=== PATIENT | male | born 1950 | race Caucasian/White ===

== ENCOUNTER 2022-05-24 18:44 | Emergency (ER) | payer MEDICARE, SELFPAY ==
--- NOTE | ~2022-05-24 | XR_ITS ---
EXAMINATION: XR HAND, RIGHT CLINICAL INFORMATION: Laceration to index and middle finger COMPARISON: None TECHNIQUE: PA, lateral, and oblique views of the right hand. FINDINGS: Degenerative changes are present at the first and second CORRECTION joints as well as at the triscaphe joint. Some mild degenerative changes are present at the interphalangeal joints, most marked second PIP joint. No fractures are seen. A bandage overlying the distal index finger. No radiopaque foreign bodies are present XR/XR hand RT min 3V IMPRESSION: No evidence of an acute traumatic osseous injury. No radiopaque foreign bodies. Degenerative changes as described above.
[2022-05-24 18:52] VITALS: BP 133/74; PULSE 77; RESP 16; TEMP 36.4; O2SAT 96; BMI 27.4
--- NOTE | 2022-05-24 19:13 | ED_ITS ---
HPI - Wound/Laceration General Chief Complaint: Wound/Laceration Stated Complaint: Laceration right hand 2fingerd Source: patient Mode of arrival: ambulatory Limitations: no limitations History of Present Illness HPI narrative: 71-year-old male presents with lacerations to his right and middle index finger on the right hand after getting his hand stuck in a car engine fan blade. He was able to put pressure dressing, used an [id number] anticoagulant because he could not stop the bleeding. He is on blood thinners, he is able to move all of his digits with full range of motion although painful, and states that his last tetanus shot was over 10 years ago. He does not report any other injuries at this time. Onset (ago): hour(s) (Several hours prior to arrival) Extremity Location: right: hand (Middle and index finger) Place: home Patient tetanus UTD: No Context: accidental Associated symptoms: pain and suspect foreign body present Treatments prior to arrival: bandage Related Data Previous Rx's Medication Instructions Recorded amoxicillin 875 mg-potassium 1 tab PO Q12H 10 days #20 tabs 05/24/22 clavulanate 125 mg tablet ibuprofen 600 mg tablet 600 mg PO Q6H PRN pain #60 tabs 05/24/22 Allergies Allergy/AdvReac Type Severity Reaction Status Date / Time No Known Allergies Allergy Verified 05/24/22 18:52 Review of Systems Review of Systems: Constitutional: No Fever, No Chills ENT/Mouth: No Ear Pain, No Hoarseness, No sore throat Eyes: No Eye Pain, No Swelling, No Redness, No Foreign Body Cardiovascular: No Chest Pain, No SOB Respiratory: No Cough, No Dyspnea Gastrointestinal: No Nausea, No Vomiting, No Diarrhea, No abdominal Pain Genitourinary: No Dysuria, No Hematuria Musculoskeletal: positive right index and middle finger pain, No Myalgias, No Joint Swelling Skin: Multiple lacerations to the index and middle finger of the right hand, No rash Neuro: No Weakness, No Numbness, No Paresthesias, No Loss of Consciousness, No Dizziness, No Headache Psych: No Anxiety/Panic, No Depression Heme/Lymph: no easy bruising, no Lymphadenopathy Endocrine: No Polyuria, No Polydipsia Yes all other systems are reviewed and are negative FOR[facility], [facility] Past Medical History Attestation statement: The following information was validated with the patient. Source: old records reviewed Social History Social History Advance Directives: No Advance Directives Information Provided: Yes Physical Exam Vital Signs: Vital Signs: Last Vital Signs Temp 97.5 F 05/24/22 18:52 Pulse 77 05/24/22 18:52 Resp 16 05/24/22 18:52 BP 133/74 05/24/22 18:52 Pulse Ox 96 05/24/22 18:52 O2 Del Method 05/24/22 18:52 BMI result Body Mass Index 27.4 Appearance: Alert. Oriented X3. No acute distress. Eyes: Pupils equal, round and reactive to light. ENT: Pharynx normal. Neck: Normal inspection. Neck supple. CVS: Normal heart rate and rhythm. Pulses normal. Respiratory: No respiratory distress. Breath sounds normal. Abdomen: Soft and nontender. Skin: Irregular deep laceration to the right index finger measuring 7 cm, 2 lacerations to the middle finger involving the nail and radial aspect of the middle finger, Skin warm and dry. Normal skin color. Normal skin turgor. Extremities: No lower extremity edema. Full range of motion to all digits. Strength 5/5. No indication of tendon deficit. Brisk capillary refill to all digits. Neuro: No motor deficit. No sensory deficit. Cranial nerves 2-12 intact. Course Course Course Narrative: 71-year-old male presents with multiple lacerations to both index and middle finger to the right hand after getting it stuck in an engine fan of a car. It is unknown when his last Tdap vaccine was updated, he does have full range of motion to all of his digits, no indication of tendon deficit or injury. Will order x-rays to rule out foreign body in fracture. Will update Tdap vaccine. Prior to arrival patient was able to apply pressure dressing, apply over-the-co unter topical coagulation material to help control the bleeding as he is on blood thinners. Referred to procedure notes for full details, prepped and draped in sterile fashion. Patient tolerated procedure well irrigated with copious amounts of sterile saline. I did have to remove the coagulation material from the wound, as well as his skin to properly suture. Patient continues with brisk capillary refill in ankle pulses status post laceration repair. Will give Augmentin, patient did not clean his hands prior to applying and packing his lacerations with the coagulation material. Detailed description of indication of infection, patient verbalized understanding of and agrees to plan of care. Verbalized understanding of signs and symptoms indicating need for emergent intervention. MDM - Wound/Laceration Differential Diagnosis Differential diagnosis: Likely laceration Medical Records Attestation: I reviewed the patient's medical records. Imaging Data Finger x-rays: Attestation: I personally reviewed and interpreted this imaging study as follows: Radiologist's impression: EXAMINATION: XR HAND, RIGHT CLINICAL INFORMATION: Laceration to index and middle finger? COMPARISON: None? TECHNIQUE: PA, lateral, and oblique views of the right hand. FINDINGS: Degenerative changes are present at the first and second RESIDENTIAL joints as well as at the triscaphe joint. Some mild degenerative changes are present at the interphalangeal joints, most marked second PIP joint. No fractures are seen. A bandage overlying the distal index finger. No radiopaque foreign bodies are present? XR/XR hand RT min 3V IMPRESSION: No evidence of an acute traumatic osseous injury. No radiopaque foreign bodies. Degenerative changes as described above. Procedures Laceration Laceration 1: Site: hand Side (If applicable): right (Index finger) Size (cm): 7 Description: irregular and contaminated Depth: involves muscle layer Local Anesthetic: lidocaine 1% Amount of anesthesia used (mL): 5 Pre-repair: wound explored, irrigated extensively and extensive debridement Skin layer closed with: nylon Size (cm): 4-0 Number of sutures: 10 Technique: simple, interrupted Laceration 2: Site: hand Side (If applicable): right (3rd finger tip) Size (cm): 1 Description: irregular and contaminated Depth: involves muscle layer Local Anesthetic: lidocaine 1% Amount of anesthesia used (mL): 5 Pre-repair: wound explored, irrigated extensively and extensive debridement Skin layer closed with: nylon Size (cm): 4-0 Number of sutures: 4 Technique: simple, interrupted Laceration 3: Site: hand Side (If applicable): right (Radial aspect mid finger between PIP and PIP) Size (cm): 3 Description: irregular Depth: involves muscle layer Local Anesthetic: lidocaine 1% Amount of anesthesia used (mL): 5 Pre-repair: wound explored, irrigated extensively and extensive debridement Skin layer closed with: nylon Size (cm): 4-0 Number of sutures: 6 Technique: simple, interrupted Discharge Plan Discharge Clinical Impression: Finger laceration Patient Disposition: Home, Self-Care Instructions: Care For Your Stitches (ED), Finger Laceration (ED) Additional Instructions: You were evaluated for lacerations from a car engine blade. We placed 10 sutures to the middle finger, 9 sutures to the index finger. Please take Augmentin twice a day for the next 10 days. Maintain good wound care, keep the hand clean and dry. Do not use the hand for 10 days. Must return in 10-14 days for suture removal. Please follow-up with your primary care physician in 3 days for wound check. If you cannot make it into primary care physician for wound check, please return to the emergency department or urgent care for evaluation. Take Augmentin 875 mg twice a day for the next 10 days. If you notice any signs or symptoms indicating infection return immediately. We updated your Tdap vaccine today. Alternate Tylenol 650 mg every 6 hours and Motrin 600 mg every 6 hours for pain management. Write down what time you take these medications prevent accidental overdose. If you lose sensation to the fingertips, have purulent drainage or swelling, please return immediately. Thank you for choosing this emergency department for evaluation. Please follow-up with primary care physician as needed. Return to the emergency department for any new, concerning, or worsening symptoms. Prescriptions: New amoxicillin-pot clavulanate 875-125 mg tablet 1 tab PO Q12H 10 Days Qty: 20 0RF ibuprofen 600 mg tablet 600 mg PO Q6H PRN (Reason: pain) Qty: 60 0RF Interventions: ED Discharge Assessment Last Done: 05/24/22 21:51 Discharge Date/Time: 05/24/22 21:56
[2022-05-24] MEDS: Lidocaine HCl 1 % MPF 5 ML VIAL INFILTRATI (19:37)
[2022-05-24] MEDS: Lidocaine HCl 1 % MPF 5 ML VIAL SUBCUT (19:37)
[2022-05-24] MEDS: Diphth,Pertus(ACell),Tet Adult 0.5 ML SYRINGE IM (19:38)
[2022-05-24] MEDS: Amoxicillin/Potassium Clav 875 MG TABLET PO (21:51)
--- NOTE | 2022-05-24 21:52 | PC.NURSE ---
pt medicated per order
== END 2022-05-24 21:56 | disposition home or self-care (01) ==
PROVIDERS: Emergency Provider Emergency Medicine; PCP Pediatrics
DX: S61.212A Laceration without foreign body of right middle finger without damage to nail, initial encounter (principal); S60.511A Abrasion of right hand, initial encounter; S61.210A Laceration without foreign body of right index finger without damage to nail, initial encounter; M79.641 Pain in right hand; W26.9XXA Contact with unspecified sharp object(s), initial encounter; Y93.9 Activity, unspecified; Y92.9 Unspecified place or not applicable; Y99.9 Unspecified external cause status; Z79.899 Other long term (current) drug therapy
CPT/HCPCS: 12044; 73130; 90471; 90715; 99282; 99284